=== PATIENT | male | born 1950 | race Caucasian/White ===

== ENCOUNTER 2023-12-25 09:13 | Outpatient (CLI) | payer MEDICARE, SELFPAY ==
--- NOTE | 2023-12-25 10:06 | W.ANESCHARGE ---
Anesthesia Charges Start Date/Time Anesthesia Start Date: 12/25/23 Anesthesia Start Time: 10:16 Stop Date/Time Anesthesia Stop Date: 12/25/23 Anesthesia Stop Time: 10:40 Summary Extremes of Age - Over 70 or under 1: [employer]PER[employer]ATION
--- NOTE | 2023-12-25 11:42 | W.ANESCHARGE ---
Anesthesia Charges Start Date/Time Anesthesia Start Date: 12/25/23 Anesthesia Start Time: 10:16 Stop Date/Time Anesthesia Stop Date: 12/25/23 Anesthesia Stop Time: 10:40 Summary Extremes of Age - Over 70 or under 1: MDA
== END 2023-12-25 09:14 | disposition home or self-care (01) ==
LOC: OP CLINIC 09:15
PROVIDERS: PCP Family Medicine; Visit Provider Internal Medicine
DX: Z12.11 Encounter for screening for malignant neoplasm of colon (principal); D12.4 Benign neoplasm of descending colon; K57.30 Diverticulosis of large intestine without perforation or abscess without bleeding; Z86.0100 Personal history of colon polyps, unspecified
CPT/HCPCS: 00811; 45380; 88305; 99100; J2704

== ENCOUNTER 2024-04-23 09:43 | Outpatient (CLI) | payer MEDICARE, SELFPAY ==
--- NOTE | 2024-04-30 13:10 | W.PM.SLEEP ---
Sleep Study Details Details Interpreting Provider: Gilma Date of Sleep Study: 04/23/24 Sleep Study Details: STUDY TYPE:? Home unattended ? BMI:? 45.8 ORDERING PROVIDER:? Gilma INDICATION:? Concern about sleep PAP ? SLEEP SUMMARY:? 426 minutes monitor RESPIRATORY SUMMARY:? AHI 114.9 Low oxygen 70 90% of study oxygen less than 90% Snoring 96% PERIODIC LIMB MOVEMENTS OF SLEEP:? Not recorded CARDIAC:? Range 44-114, mean 79.1 IMPRESSION:? Very severe obstructive sleep apnea with significant hypo oxygenation RECOMMENDATION: Either in-lab titration or AutoSet CPAP with close follow-up. Weight loss is also recommended
== END 2024-04-23 09:44 | disposition home or self-care (01) ==
PROVIDERS: PCP Family Medicine; Visit Provider Otolaryngology
DX: G47.33 Obstructive sleep apnea (adult) (pediatric) (principal)
CPT/HCPCS: 95806